=== PATIENT | female | born 1935 | race Caucasian/White ===

== ENCOUNTER 2016-11-17 12:32 | Emergency (ER) | payer OTHER, MEDICARE, BC ==
[~2016-11-17 12:32] MED LIST: ASPIRIN81 M1 PO; ATENOLOL25 M1 PO; CENTRUM SILVER1 EAC3 PO; CYCLOBENZAPRINE5 M1 PO; FENOFIBRATE145 M2 PO; FLECAINIDE ACET50 M1 PO; HYDROCODON-ACE1 EA16 PO; LEXAPRO10 M2 PO; MELATONIN5 M5 PO; MIRALAX17 G2 PO; PLAVIX75 M1 PO; PREMARIN30 GM OTHER; SIMVASTATIN40 M1 PO; TRAMADOL HCL50 M2 PO; TRICOR145 M2 PO; XANAX0.5 M1 PO; ZOCOR40 M1 PO
== END 2016-11-17 14:50 ==
LOC: EDMED 12:32
DX: Z04.1 Encounter for examination and observation following transport accident (principal)

== ENCOUNTER 2016-11-26 | Emergency (ER) | payer MEDICARE, BC ==
[2016-11-26] MEDS ORDERED: CYCLOBENZAPRINE5 M1 PO (02:13)
[2016-11-26] MEDS ORDERED: EXTRA STRENGTH500 M1 PO (02:13)
[2016-11-26] MEDS ORDERED: SYNTHROID25 MC1 PO (02:14)
== END 2016-11-26 02:50 ==
DX: R07.89 Other chest pain (principal); I10 Essential (primary) hypertension; Z98.49 Cataract extraction status, unspecified eye; Z79.82 Long term (current) use of aspirin; Z79.899 Other long term (current) drug therapy